=== PATIENT | male | born 1995 | race African-American/Black ===

== ENCOUNTER 2017-04-02 10:28 | Emergency (ER) | payer OTHER ==
[~2017-04-02] VITALS: Ht 182.9 cm; Wt 100.0 kg
[2017-04-02 10:29] VITALS: BP 138/89
[2017-04-02] MEDS ORDERED: AZITHROMYCIN 250 MG TAB PO ONE (11:30)
[2017-04-02] MEDS ORDERED: cefTRIAXone SOD 250 MG VIAL (J0696) IM ONE (11:30)
== END 2017-04-02 12:03 | disposition home or self-care (01) ==
LOC: M ED 10:28
DX: Z20.2 Contact with and (suspected) exposure to infections with a predominantly sexual mode of transmission (principal)
CPT/HCPCS: 81001; 87086; 87491; 87591; 96372; 99282; J0696

== ENCOUNTER 2018-04-13 10:29 | Emergency (ER) | payer OTHER ==
[2018-04-13] MEDS: cefTRIAXone SOD 250 MG VIAL (J0696) IM (11:00)
[2018-04-13] MEDS: LIDOCAINE 1% SDV 5 ML VIAL DILUENT (11:00)
[2018-04-13] MEDS: AZITHROMYCIN 250 MG TAB PO (11:00)
[2018-04-13 12:26] LABS: CHLAMYDIA DNA AMPLIFICATION POSITIVE (NEGATIVE); GC DNA AMPLIFICATION NEGATIVE (NEGATIVE)
[2018-04-14 09:27] LABS: HEPATITIS B SURFACE ANTIBODY POSITIVE (POSITIVE); HEPATITIS B SURFACE ANTIGEN NEGATIVE (NEGATIVE); HIV 1&2 SCREEN CENTAUR NEGATIVE (NEGATIVE)
[2018-04-14 09:27] LABS: HEPATITIS C VIRUS ABY INDEX 0.1 INDEX (<0.8)
== END 2018-04-13 11:15 | disposition home or self-care (01) ==
LOC: M ED 10:29
DX: A56.2 Chlamydial infection of genitourinary tract, unspecified (principal); Z20.2 Contact with and (suspected) exposure to infections with a predominantly sexual mode of transmission
CPT/HCPCS: J0696

== ENCOUNTER 2018-07-18 11:55 | Emergency (ER) | payer OTHER ==
[~2018-07-18] VITALS: Ht 182.9 cm; Wt 106.8 kg
[2018-07-18] MEDS ORDERED: AZITHROMYCIN 250 MG TAB PO ONE (13:00)
[2018-07-18] MEDS ORDERED: LIDOCAINE 1% SDV 5 ML VIAL DILUENT ONE (13:00)
[2018-07-18] MEDS ORDERED: cefTRIAXone SOD 250 MG VIAL (J0696) IM ONE (13:00)
[2018-07-18 13:32] VITALS: BP 133/88
[2018-07-18 13:33] LABS: APPEARANCE, URINE CLEAR (CLEAR); BACTERIA, URINE AUTO NEGATIVE (NEGATIVE); BILIRUBIN, URINE AUTO NEGATIVE (NEGATIVE); BLOOD, URINE BLOOD NEGATIVE (NEGATIVE); COLOR, URINE YELLOW (YELLOW); GLUCOSE, URINE (UA) AUTO NEGATIVE (NEGATIVE); KETONE, URINE AUTO NEGATIVE (NEGATIVE); LEUKOCYTE ESTERASE, URINE AUTO NEGATIVE (NEGATIVE); NITRITE, URINE AUTO NEGATIVE (NEGATIVE); PROTEIN, URINE AUTO NEGATIVE (NEGATIVE); RBC, URINE AUTO 0 /HPF (0-3); SPECIFIC GRAVITY URINE AUTO 1.016 (1.002-1.035); SQUAMOUS EPITHELIAL CELL UR AU 0 /HPF (0-6); UROBILINOGEN, URINE AUTO 0.2 mg/dL (0.0-2.0); WBC, URINE AUTO 0 /HPF (0-3)
[2018-07-18 15:36] LABS: CHLAMYDIA DNA AMPLIFICATION NEGATIVE (NEGATIVE); GC DNA AMPLIFICATION NEGATIVE (NEGATIVE)
== END 2018-07-18 13:36 | disposition home or self-care (01) ==
LOC: M ED 11:55
DX: Z20.2 Contact with and (suspected) exposure to infections with a predominantly sexual mode of transmission (principal)
CPT/HCPCS: 81001; 87491; 87591; 96372; 99284; J0696

== ENCOUNTER 2018-10-07 16:09 | Emergency (ER) | payer OTHER ==
[~2018-10-07] VITALS: Ht 182.9 cm; Wt 102.1 kg
[2018-10-07 16:09] VITALS: BP 153/98
== END 2018-10-07 16:39 | disposition left against medical advice (07) ==
LOC: M ED 16:09
DX: Z20.2 Contact with and (suspected) exposure to infections with a predominantly sexual mode of transmission (principal); Z53.21 Procedure and treatment not carried out due to patient leaving prior to being seen by health care provider